=== PATIENT | male | born 1985 | race African-American/Black ===

== ENCOUNTER 2020-02-29 16:16 | Observation (INO) ==
[2020-02-29] MEDS ORDERED: MORPHINE 4 MG/1 ML VIAL IV PRN (20:18)
[2020-02-29] MEDS ORDERED: DEXTROSE 50% 25 GM/50 ML VIAL IV PRN (20:18)
[2020-02-29] MEDS ORDERED: ONDANSETRON 4 MG/2 ML VIAL IV PRN (20:18)
[2020-02-29] MEDS ORDERED: GLUCAGON 1 MG VIAL IM PRN (20:18)
[2020-02-29] MEDS ORDERED: dilTIAZem Drip 125 MG/125 ML PREMIX IV SCH (20:30)
[2020-02-29] MEDS ORDERED: chlordiazePOXIDE 25 MG CAPSULE PO PRN (20:32)
[2020-02-29 20:56] LABS: Basophils % 0.3 % (0.0-0.8); Hematocrit 38.3 VOL% (42.0-52.0); Hemoglobin 13.2 GM/DL (14.0-18.0); Immature Granulocytes % 0.3 %; Immature Granulocytes Absolute 0.02 #; Lymphocytes # 0.9 10*3/uL (1.4-4.0); Lymphocytes % 13.1 % (21.2-54.2); Mean Corpuscular HGB Conc 34.5 GM/DL (32-36); Mean Corpuscular Volume 106.4 FL (87-102); Mean Platelet Volume 10.4 FL (9.6-12.0); Monocytes % 14.8 % (1.7-12.7); Neutrophils % 71.5 % (38.7-73.9); Platelet Count 157 T/CUMM (130-400); Red Cell Distribution Width 14.5 % (9.3-17.3)
[2020-02-29] MEDS ORDERED: DILTIAZEM 100 MG VIAL.ADD IV SCH (21:00)
[2020-02-29 21:15] LABS: Albumin 3.5 G/DL (3.4-5.0); Bilirubin,Total 0.4 MG/DL (0.2-1.0); Calcium 7.9 MG/DL (8.5-10.1); Osmolality,Calculated 279.1 MOS/KG (273-304); Total Protein 7.1 G/DL (6.4-8.3)
[2020-02-29 21:26] LABS: Risk Ratio 1.69; Thyroid Stimulating Hormone 0.828 uIU/ml (0.358-3.74); VLDL CHOLESTEROL 18.8 MG/DL
[2020-02-29] MEDS ORDERED: THIAMINE INJ 100 MG, FOLIC ACID INJ 1 MG, MAGNESIUM SULF INJ 2 GM, MULTIVITAMIN INJ 10 ... IV SCH (21:30)
[2020-02-29] MEDS: ENOXAPARIN 60 MG/0.6 ML SYRINGE SUBCUT SCH (22:00)
[2020-03-01 07:42] LABS: Calcium 8.1 MG/DL (8.5-10.1)
[2020-03-01 07:43] LABS: Albumin 3.2 G/DL (3.4-5.0); Bilirubin,Direct 0.14 MG/DL (0.0-0.20); Bilirubin,Indirect 0.4 MG/DL (0.0-1.0); Bilirubin,Total 0.5 MG/DL (0.2-1.0); Total Protein 7.2 G/DL (6.4-8.3)
[2020-03-01] MEDS: NICOTINE 21 MG/24 HR PATCH TRANSDERM PRN (09:06)
[2020-03-01] MEDS: PANTOPRAZOLE 40 MG VIAL IV SCH (09:08)
[2020-03-01] MEDS: ENOXAPARIN 60 MG/0.6 ML SYRINGE SUBCUT SCH (09:08)
[2020-03-01] MEDS: POTASSIUM CHLORIDE 20 MEQ TABLET PO PRN ×3 (11:30→14:38)
[2020-03-01 12:09] LABS: Hepatitis C Virus Ab Result Negative (Negative)
[2020-03-01] MEDS: METOPROLOL TARTRATE 25 MG TABLET PO SCH ×2 (12:40→22:00)
[2020-03-01] MEDS: THIAMINE INJ 100 MG, FOLIC ACID INJ 1 MG, MAGNESIUM SULF INJ 2 GM, MULTIVITAMIN INJ 10 ... IV SCH (12:40)
[2020-03-01 13:24] LABS: Troponin I < 0.015 NG/ML (0.00-0.045)
[2020-03-01 15:37] LABS: Troponin I < 0.015 NG/ML (0.00-0.045)
[2020-03-01] MEDS: ENOXAPARIN 80 MG/0.8 ML SYRINGE SUBCUT SCH (22:00)
[2020-03-02] MEDS: [UNRECOGNIZED DRUG - OTHER] IV SCH ×2 (00:42→23:48)
[2020-03-02] MEDS: THIAMINE IV SCH ×2 (00:42→23:48)
[2020-03-02] MEDS: MAGNESIUM SULF IV SCH ×2 (00:42→23:48)
[2020-03-02] MEDS: FOLIC ACID IV SCH ×2 (00:42→23:48)
[2020-03-02 05:54] LABS: Basophils % 0.4 % (0.0-0.8); Eosinophils # 0.1 10*3/uL (0.0-0.87); Eosinophils % 1.1 % (0.00-10.9); Hematocrit 39.5 VOL% (42.0-52.0); Hemoglobin 13.7 GM/DL (14.0-18.0); Immature Granulocytes % 0.2 %; Immature Granulocytes Absolute 0.02 #; Lymphocytes # 1.7 10*3/uL (1.4-4.0); Lymphocytes % 20.2 % (21.2-54.2); Mean Corpuscular HGB Conc 34.7 GM/DL (32-36); Mean Corpuscular Volume 104.5 FL (87-102); Mean Platelet Volume 11.1 FL (9.6-12.0); Neutrophils % 63.1 % (38.7-73.9); Platelet Count 151 T/CUMM (130-400); Red Blood Count 3.78 MC/CUMM (3.8-5.5); Red Cell Distribution Width 13.6 % (9.3-17.3); White Blood Count 8.4 T/CUMM (4-12)
[2020-03-02 06:16] LABS: Calcium 8.3 MG/DL (8.5-10.1); Osmolality,Calculated 271.7 MOS/KG (273-304)
[2020-03-02] MEDS: METOPROLOL TARTRATE 25 MG TABLET PO SCH (08:32)
[2020-03-02] MEDS: PANTOPRAZOLE 40 MG VIAL IV SCH (08:33)
[2020-03-02] MEDS: ENOXAPARIN 80 MG/0.8 ML SYRINGE SUBCUT SCH ×2 (10:11→21:50)
[2020-03-02] MEDS: ASPIRIN EC 81 MG TABLET PO SCH (11:04)
[2020-03-02] MEDS: NICOTINE 21 MG/24 HR PATCH TRANSDERM PRN (11:17)
[2020-03-02] MEDS: METOPROLOL TARTRATE 50 MG TABLET PO SCH ×2 (11:18→21:50)
[2020-03-02] MEDS: THIAMINE INJ 100 MG, FOLIC ACID INJ 1 MG, MAGNESIUM SULF INJ 2 GM, MULTIVITAMIN INJ 10 ... IV SCH (11:31)
[2020-03-03 05:09] LABS: Basophils % 0.6 % (0.0-0.8); Eosinophils # 0.2 10*3/uL (0.0-0.87); Eosinophils % 2.2 % (0.00-10.9); Hemoglobin 13.4 GM/DL (14.0-18.0); Immature Granulocytes % 0.3 %; Immature Granulocytes Absolute 0.02 #; Lymphocytes # 1.9 10*3/uL (1.4-4.0); Mean Corpuscular HGB Conc 34.4 GM/DL (32-36); Mean Corpuscular Volume 104.6 FL (87-102); Mean Platelet Volume 11.4 FL (9.6-12.0); Monocytes % 14.4 % (1.7-12.7); Neutrophils % 54.5 % (38.7-73.9); Platelet Count 164 T/CUMM (130-400); Red Blood Count 3.73 MC/CUMM (3.8-5.5); Red Cell Distribution Width 13.5 % (9.3-17.3); White Blood Count 6.9 T/CUMM (4-12)
[2020-03-03 05:30] LABS: Calcium 8.6 MG/DL (8.5-10.1); Osmolality,Calculated 268.8 MOS/KG (273-304)
[2020-03-03] MEDS: ENOXAPARIN 80 MG/0.8 ML SYRINGE SUBCUT SCH (08:09)
[2020-03-03] MEDS: PANTOPRAZOLE 40 MG VIAL IV SCH (08:10)
[2020-03-03] MEDS: ASPIRIN EC 81 MG TABLET PO SCH (08:11)
[2020-03-03] MEDS ORDERED: METOPROLOL SUCCINATE XL 25 MG TABLET PO SCH (09:00)
[2020-03-03] MEDS ORDERED: lisinopriL 5 MG TABLET PO SCH (09:00)
[2020-03-03] MEDS ORDERED: METOPROLOL SUCCINATE XL 50 MG TABLET PO SCH (09:00)
[2020-03-03] MEDS: THIAMINE INJ 100 MG, FOLIC ACID INJ 1 MG, MAGNESIUM SULF INJ 2 GM, MULTIVITAMIN INJ 10 ... IV SCH (10:15)
[2020-03-03 11:56] VITALS: BP 132/94
== END 2020-03-03 14:15 | disposition home or self-care (01) ==
LOC: INTOOBSV 18:46 → SUATTDRO 18:46 → N.TELEN 18:46
PROVIDERS: ADMIT Internal Medicine; ATTEND Family Medicine